=== PATIENT | female | born 1955 | race Caucasian/White ===

== ENCOUNTER 2022-10-01 16:21 | Inpatient (IN) | payer MEDICARE, SELFPAY ==
[2022-10-01 16:23] VITALS: BP 204/108; PULSE 70; RESP 17; TEMP 36.6; O2SAT 93; BMI 38.4
[2022-10-01] MEDS: Morphine 4 MG/ML Syringe IV ×2 (16:57→17:48)
[2022-10-01] MEDS: Ondansetron 4 MG/2 ML Vial IV (16:57)
[2022-10-01 17:19] LABS: Absolute Lymphocyte Count 2.45 X10^3/uL (0.83-4.51); Absolute Neutrophil Count 6.1 X10^3/uL (2.0-7.7); Basophil# 0.05 X10^3/uL; Basophil% 0.5 % (0-1); Eosinophil# 0.12 X10^3/uL; Eosinophils% 1.3 % (0-5); Hematocrit 42.6 % (37-47); Hemoglobin 14.4 g/dL (12.0-15.0); Lymphocyte # 2.45 X10^3/ul (0.83-4.51); Lymphocyte % 26.4 % (19-41); Mean Corp Hgb Conc 33.8 g/dL (32-36); Mean Corpuscular Hgb 31.7 pg (27.0-32.0); Mean Corpuscular Volume 93.8 fL (81-99); Mean Platelet Vol. 9.2 fl (6.2-12.0); Monocyte# 0.56 X10^3/uL; NRBC Flagged by Analyzer 0 % (0-5); Neutrophil # 6.06 X10^3/uL (2.7-7.7); Neutrophil % 65.4 % (47-70); Platelet Count 263 K/mm3 (150-450); RBC Distribution Width CV 12.7 % (11.6-14.6); RBC Distribution Width SD 43.7 fl (35.1-43.9); Red Blood Count 4.54 M/mm3 (4.2-5.4); White Blood Count 9.3 K/mm3 (4.4-11.0)
[2022-10-01 17:33] LABS: Anion Gap 6 (5-15); BUN 16 mg/dL (7-18); BUN/Creat Ratio 19.7 RATIO (10-20); Chloride 109 mmol/L (98-107); Creatinine, Serum 0.81 mg/dL (0.55-1.02); EST Glomerular Filtration Rate 75 mL/min (>60); Est Glom Filt Rate - Afr Amer 91 mL/min (>60); Glucose 103 mg/dL (74-106); Sodium Level 142 mmol/L (136-145)
--- NOTE | 2022-10-01 18:00 | RAD_ITS ---
STUDY: X-RAY - RIGHT FEMUR REASON FOR STUDY: Female, 67 years old. pain TECHNIQUE: 2 view(s) of the femur. COMPARISON: None. FINDINGS: Possible cortical defect subcapital femoral neck. Remainder of the femur and normal. Normal visualized soft tissue structure. RAD/Femur Min 2 Views IMPRESSION: Possible impacted nondisplaced subcapital hip fracture. Recommend dedicated hip views. Electronically Signed: Robles Wiggins MD at 18:46 EST ,
--- NOTE | 2022-10-01 18:00 | RAD_ITS ---
STUDY: X-RAY - PELVIS REASON FOR EXAM: Female, 67 years old. Pain TECHNIQUE: One view of the pelvis was obtained. COMPARISON: None. FINDINGS: There is a non-specific bowel gas pattern. Normal visualized soft tissue structures. Normal bilateral iliac wings, sacroiliac joints and visualized sacrum. Normal visualized bilateral superior and inferior pubic rami. Normal pubic symphysis. Normal ischial tuberosities. Normal visualized right femoral head. Normal right acetabulum. Normal right hip joint. Normal visualized left femoral head. Normal left acetabulum. Normal left hip joint. RAD/Pelvis 1 or 2 Views IMPRESSION: Normal x-ray examination of the pelvis. Electronically Signed: Robles Wiggins MD at 18:43 EST ,
[2022-10-01 18:22] VITALS: BP 157/61
--- NOTE | 2022-10-01 18:31 | EDS_ITS ---
HPI History of Present Illness Chief Complaint: Fall Narrative Narrative: 67-year-old female presenting with right hip pain. She states he was out feeding the chickens and slipped and fell on the grass. She was unable to get up. She complains of excruciating pain radiating from right hip down her mid femoral region. She denies head injury or LOC. She is not on any anticoagulation. States really medical problems with high blood pressure. Otherwise healthy prior to fall. PFSH PFS Medical History Hypertension Home Medications lisinopril 10 mg tablet 10 mg PO DAILY 10/01/22 [History Last Taken Unknown] omeprazole 20 mg capsule,delayed release 20 mg PO DAILY PRN GERD 10/01/22 [History Last Taken Unknown] Allergy/AdvReac Type Severity Reaction Status Date / Time No Known Allergies Allergy Verified 10/01/22 16:22 Surgical History History of cholecystectomy History of hysterectomy Social History Smoking Status: Never smoker ROS ROS ED Constitutional Constitutional ED: Denies chills, fever(s) or sweats Eyes Eyes: Denies blurry vision or change in vision ENT ENT ED: Denies ear pain or sore throat Cardiovascular Cardiovascular: Denies chest pain, palpitations or racing heartbeat Respiratory/Chest Respiratory/Chest: Denies cough, dyspnea or sputum Gastrointestinal Gastrointestinal: Denies abdominal pain, constipation, diarrhea, nausea or vomiting Genitourinary Genitourinary ED: Denies dysuria, hematuria or urinary frequency Musculoskeletal Musculoskeletal: Reports other Details: Right hip pain Integumentary Denies abscess, Abrasions or rash Neurologic Neurologic: Denies headache(s), paresthesias or weakness Psychiatric Psychiatric: Denies anxiety, depression, suicidal ideation or suicidal thoughts Endocrine Endocrinology: Denies polydipsia or polyuria EXAM Physical Exam Const Vital Signs: 10/01/22 16:23 10/01/22 16:25 10/01/22 18:22 Temperature 97.8 F Temperature Source Oral Pulse Rate 70 Respiratory Rate 17 Respiratory Effort Normal Non-Labored Respiratory Depth Normal Respiratory Pattern Normal Blood Pressure 204/108 H 157/61 H Blood Pressure Mean 140 93 Pulse Ox 93 Oxygen Delivery Method Room Air Room Air Oxygen Flow Rate (L/min) 10/01/22 19:09 Temperature 96 F L Temperature Source Temporal Pulse Rate 71 Respiratory Rate 18 Respiratory Effort Respiratory Depth Respiratory Pattern Blood Pressure 163/80 H Blood Pressure Mean 107 Pulse Ox 98 Oxygen Delivery Method Nasal Cannula Oxygen Flow Rate (L/min) 2 Positive well nourished General Appearance ED: NAD HEENT normocephalic and atraumatic Chest Wall inspection of chest normal Resp normal respiratory effort and no retractions Auscultation: Negative for rales, rhonchi or wheezes Cardio regular rate and regular rhythm GI non-tender Back/Spine Lumbar Spine / Lower Back: Negative for lumbar spinal tenderness Extremity Extremity Narrative: Tenderness palpation over the right hip and the right anterior thigh. No obvious deformity. Right hip is not shortened or externally rotated. Positive logroll on the right. Neuro oriented x3 and CN's II-XII intact bilaterally Sensorium / Orientation: alert Psych mental status grossly normal Skin no wounds MDM MDM MDM Narrative Medical decision making narrative: Patient with pain in the right hip concerning for hip fracture. I did obtain blood work and her CBC and BMP are unremarkable. Patient given morphine 4 mg as well as Zofran 4 mg IV. Attempted to obtain imaging however the patient refused x-ray because she states within 2 months of pain. She was given another 4 mg of morphine. CBC and BMP were obtained. These are normal. Right hip x-ray on my interpretation shows a nondisplaced subcapital hip fracture. The radiologist interpreted this as negative. I spoke with Dr. Mazariegos who reviewed the films and agrees agrees there is a fracture here. He will need a CT scan for surgical planning. Request an EKG as well. Patient will be discussed with the hospitalist for admission. Impression: 1. Mechanical fall 2. Right hip fracture Lab Data Attestation: I reviewed the patient's lab results. Labs: Laboratory Results - last 24 hr 10/01/22 10/01/22 17:05 17:05 WBC 9.3 RBC 4.54 Hgb 14.4 Hct 42.6 MCV 93.8 MCH 31.7 MCHC 33.8 RDW Std Deviation 43.7 RDW Coeff of Antolin 12.7 Plt Count 263 MPV 9.2 Immature Gran % (Auto) 0.400 Neut % (Auto) 65.4 Lymph % (Auto) 26.4 [place] % (Auto) 6.0 Eos % (Auto) 1.3 Baso % (Auto) 0.5 Absolute Neuts (auto) 6.1 Absolute Lymphs (auto) 2.45 Nucleated RBC % 0 Sodium 142 Potassium 4.0 Chloride 109 H Carbon Dioxide 27.0 Anion Gap 6 BUN 16 Creatinine 0.81 Estim Creat Clear Calc 59.00 Est GFR (MDRD) Af Amer 91 Est GFR (MDRD) Non-Af 75 BUN/Creatinine Ratio 19.7 Glucose 103 Calcium 9.0 Radiography Diagnostic Testing: Clinical Impression(s) from Imaging Studies Femur X-Ray 10/01/22 18:00 IMPRESSION: Possible impacted nondisplaced subcapital hip fracture. Recommend dedicated hip views. Electronically Signed: Robles Wiggins MD at 18:46 EST Reading Location ID and State: [address] [place] [address] , Service support , Pelvis X-Ray 10/01/22 18:00 IMPRESSION: Normal x-ray examination of the pelvis. Electronically Signed: Robles Wiggins MD at 18:43 EST , Discharge Plan Triage Chief Complaint: Fall ED Provider: Bernabe Schmid Dx/Rx/DC Orders Prescriptions: No Action lisinopril 10 mg Tablet 10 mg PO DAILY omeprazole 20 mg Capsule,Delayed Release(Dr/Ec) 20 mg PO DAILY PRN (Reason: GERD) Primary Care Provider: Tam Herrmann Referrals: Tam Herrmann MD [Primary Care Provider] -
[2022-10-01 19:09] VITALS: BP 163/80; PULSE 71; RESP 18; TEMP 35.5; O2SAT 98
--- NOTE | 2022-10-01 20:00 | RAD_ITS ---
STUDY: X-RAY CHEST REASON FOR EXAM: Female, 67 years old. preop TECHNIQUE: Single frontal view of the chest. COMPARISON: None. FINDINGS: The lungs are clear and expanded. There is no demonstrated pleural abnormality. Normal size heart. Normal mediastinum and annmarie. Normal visualized pulmonary arteries. Normal visualized aortic arch and descending thoracic aorta. Normal visualized thoracic spine. Normal visualized ribs, clavicles, and shoulders. There is no demonstrated abnormality of the visualized soft tissue structures of the upper abdomen. RAD/Chest 1 View (Portable) IMPRESSION: Normal x-ray examination of the chest. Electronically Signed: Robles Wiggins MD at 21:00 EST ,
--- NOTE | 2022-10-01 20:09 | HP.PCM.HOS_ITS ---
HPI - General General Date of Admission: 10/01/22 Date of Service: 10/01/22 Chief Complaint: Fall, R hip pain. HPI Narrative The patient is a 67 y/o F w/ PMHx: Obesity, HTN, GERD who presents to the [facility] ED on 10/01/22 with history of right hip pain noted to have been outside feeding her chickens and unfortunately she slipped and fell in the grass with significant debility following and unable to get up at that time with excruciating 10 out of 10 pain radiating from her right hip down to the mid femoral region with no loss of consciousness or head injury however given ongoing significant pain prompted ED evaluation. Patient currently notes pain is better controlled, 2 out of 10 however with any movement attempts she does have sharp pain rating it 10 out of 10. Work-up in the ED included T97.8, heart rate 70, BP initially 204/108 with most recent repeat 163/80, respiratory rate initially 93% eventually placed on 2 L nasal cannula with oxygenation 98% following administration of morphine, CBC with WC 9.3, hemoglobin 14.4, platelet 263 without marked shift, BMP unremarkable aside chloride 109, plain film of the right femur with possible impacted nondisplaced subcapital hip fracture, plain film of the pelvis with no acute findings, EKG with sinus rhythm with no acute evidence of ischemia. ED discussed case with Dr. Mazariegos. In the ED patient administered Dilaudid 0.5 mg IV x1 as well as morphine 4 mg IV x2 in addition to Zofran 4 mg. [facility] Medical History (Updated 10/02/22 @ 02:[address] Margaret Mccrary MD) GERD (gastroesophageal reflux disease) Hypertension Obesity Home Medications cholecalciferol (vitamin D3) 25 mcg (1,000 unit) tablet (Vitamin D3) 25 mcg PO DAILY supplement 10/01/22 [History Last Taken 10/01/22] cyanocobalamin (vitamin B-12) 1,000 mcg sublingual tablet 1,000 mcg sublingual DAILY supplement 10/01/22 [History Last Taken 10/01/22] lisinopril 10 mg tablet 10 mg PO DAILY blood pressure 10/01/22 [History Last Taken 10/01/22] omeprazole 20 mg capsule,delayed release 20 mg PO DAILY PRN GERD 10/01/22 [History Last Taken Unknown] Allergy/AdvReac Type Severity Reaction Status Date / Time No Known Allergies Allergy Verified 10/01/22 16:22 Family History (Updated 10/01/22 @ 20:[address] Margaret Mccrary MD) Mother Diabetes Father Thyroid disorder Surgical History History of cholecystectomy History of cranial surgery History of hysterectomy History of orthopedic surgery History of tonsillectomy and adenoidectomy Social History (Updated 10/01/22 @ 20:[address] Margaret Mccrary MD) household members: spouse Smoking Status: Never smoker alcohol intake: never substance use type: does not use ROS ROS Narrative Admission Review of Systems: CONSTITUTIONAL: No weight loss, fever, chills, + weakness or fatigue. HEENT: Eyes: No visual loss, blurred vision, double vision or yellow sclerae. Ears, Nose, Throat: No hearing loss, sneezing, congestion, runny nose or sore throat. SKIN: No rash or itching, lesions, wounds. CARDIOVASCULAR: No chest pain, chest pressure or chest discomfort, palpitations, edema, orthopnea, syncopal events. RESPIRATORY: No shortness of breath, cough or sputum, wheezing, hemoptysis. GASTROINTESTINAL: + anorexia, nausea, No vomiting or diarrhea, abdominal pain, melena, BRBPR. GENITOURINARY: No dysuria, frequency, urgency or retention. NEUROLOGICAL: No headache, dizziness, syncope, paralysis, ataxia, numbness or tingling in the extremities, focal weakness, change in bowel or bladder control, seizure. MUSCULOSKELETAL: + muscle, back pain, joint pain or stiffness. HEMATOLOGIC: No anemia, bleeding or bruising. LYMPHATICS: No enlarged nodes. No history of splenectomy. PSYCHIATRIC: No history of depression or anxiety. ENDOCRINOLOGIC: No reports of sweating, cold or heat intolerance. No polyuria or polydipsia. ALLERGIES: No history of asthma, hives, eczema or rhinitis. Vital Signs Vital Signs Vital Signs: 10/01/22 16:23 10/01/22 16:25 10/01/22 18:22 Temperature 97.8 F Temperature Source Oral Pulse Rate 70 Respiratory Rate 17 Respiratory Effort Normal Non-Labored Respiratory Depth Normal Respiratory Pattern Normal Blood Pressure 204/108 H 157/61 H Blood Pressure Mean 140 93 Pulse Ox 93 Oxygen Delivery Method Room Air Room Air Oxygen Flow Rate (L/min) 10/01/22 19:09 Temperature 96 F L Temperature Source Temporal Pulse Rate 71 Respiratory Rate 18 Respiratory Effort Respiratory Depth Respiratory Pattern Blood Pressure 163/80 H Blood Pressure Mean 107 Pulse Ox 98 Oxygen Delivery Method Nasal Cannula Oxygen Flow Rate (L/min) 2 Weight Weight: 223 lb 11.2 oz Body Mass Index (BMI) 38.4 Physical Exam Narrative Physical Examination: General: Awake, alert, oriented x 3 and cooperative, laying in the ED bed, fatigued appearing, notes pain currently controlled. Skin: Normal color, normal turgor, no icterus, no cyanosis. HEENT: AT/NC, EOMI, PERRLA, dry MM, no carotid bruits or JVD noted. Lungs: Diminished, distant, appropriate effort, no rales, ronchi or wheezing. Heart: Regular rate and rhythm; no gallop, rub audible. Abdomen: Soft, obese, NTTP, ND, mildly hyperactive BS, no HSM. Extremities: No cyanosis, no clubbing, mild bilateral ankle not markedly pitting edema, peripheral pulses intact, status post fall with right hip fracture. Neurological: Patient awake, alert, oriented as noted, cognitive function int act; pupils equally reactive to light and accommodation, cranial nerves II-XII grossly normal, moving all 4 extremities except limited right lower extremity movement given recent fall with right hip fracture, strength accordingly severely globally decreased. Psychiatric: Affect appears fatigued, notes pain currently controlled, no acute evidence of depressive or anxiety feelings. Results Lab / Micro Data Result Diagrams: 10/01/22 17:05 10/01/22 17:05 Labs: Laboratory Results - last 24 hr 10/01/22 17:05: WBC 9.3, RBC 4.54, Hgb 14.4, Hct 42.6, MCV 93.8, MCH 31.7, MCHC 33.8, RDW Std Deviation 43.7, RDW Coeff of Antolin 12.7, Plt Count 263, MPV 9.2, Immature Gran % (Auto) 0.400, Neut % (Auto) 65.4, Lymph % (Auto) 26.4, [place] % (Auto) 6.0, Eos % (Auto) 1.3, Baso % (Auto) 0.5, Absolute Neuts (auto) 6.1, Absolute Lymphs (auto) 2.45, Nucleated RBC % 0 10/01/22 17:05: Sodium 142, Potassium 4.0, Chloride 109 H, Carbon Dioxide 27.0, Anion Gap 6, BUN 16, Creatinine 0.81, Estim Creat Clear Calc 59.00, Est GFR (MDRD) Af Amer 91, Est GFR (MDRD) Non-Af 75, BUN/Creatinine Ratio 19.7, Glucose 103, Calcium 9.0 Radiology Impression Femur X-Ray 10/01/22 18:00 IMPRESSION: Possible impacted nondisplaced subcapital hip fracture. Recommend dedicated hip views. Electronically Signed: Robles Wiggins MD at 18:46 EST , Pelvis X-Ray 10/01/22 18:00 IMPRESSION: Normal x-ray examination of the pelvis. Electronically Signed: Robles Wiggins MD at 18:43 EST Reading Location ID and State: [facility] / [place] , Service support , Assessment & Plan Assessment/Plan (1) Closed right hip fracture: PLAN: Plan The patient is a 67 y/o F w/ PMHx: Obesity, HTN, GERD who presents to the [facility] ED on 10/01/22 with history of right hip pain noted to have been outside feeding her chickens and unfortunately she slipped and fell in the grass with significant debility following and unable to get up at that time with excruciating 10 out of 10 pain radiating from her right hip down to the mid femo ral region with no loss of consciousness or head injury however given ongoing significant pain prompted ED evaluation. #1. General debility, right hip pain s/p mechanical fall w/ impacted nondispl aced subcapital hip fracture: Plain film noting possible impacted nondisplaced subcapital hip fracture with an unremarkable plain film of the pelvis. Orthopedic surgery consulted from ED. Will admit to MS, maintain NPO after midnight, continue gentle IVFs, moore placement, monitor I/Os, frequent po sitioning, fall precautions, PRN Pain, anti-emetic regimen. PT/OT following operative intervention. CM consulted for discharge planning. Per NSQIP given patient's not marked medical history, high functioning, appropriate labs, no history of exertional dyspnea or chest pain and EKG not marked appearing agree with proceeding to operative intervention in AM. #2. Hypertension, currently uncontrolled but suspect pain related: Patient BP initially significantly elevated, likely pain related, for now will continue home regimen including lisinopril with further adjustments if necessary pending repeat trend, PRN hydralazine. #3. Obesity: Weight loss and lifestyle changes encouraged. #4. GERD: We will continue patient on PPI. #5. DVT prophylaxis: SCDs, defer chemoprophylaxis given likely planned a.m. orthopedic surgery intervention. #6. CODE status: Patient and who are present note that they have not yet set up healthcare power gis scientist or living will. Discussed this concept and at this point patient would like her to be her decision-maker if she for some reason could not. Discussed CODE status at length including difference between FULL code, DNR-CCA and DNR-CC status. Following discussions about the differences in these status, requested Full Code status. Advanced Care Planning Face to Face Time: 16 minutes. Charges/Coding Visit Charges Inpatient E&M: 60445 Init Hosp L3 Procedures Hospitalists Procedures: 30075 Advncd Care Plan 30 Min
--- NOTE | 2022-10-01 20:17 | CT_ITS ---
STUDY: CT PELVIS and femurs/hips WITHOUT CONTRAST REASON FOR EXAM: Female, 67 years old. surgical planning RADIATION DOSAGE (If Supplied By Facility): CTDIvol = ( 14.05 ) mGy, DLP = ( 934.58 ) mGycm TECHNIQUE: Transaxial imaging of the pelvis was performed with oral contrast, and without intravenous administration of contrast material. Individualized dose optimization techniques were used for this CT. COMPARISON: September 23, 2022. Pelvic radiograph FINDINGS: Bladder is decompressed with a Velázquez catheter. Normal visualized small intestine. Normal visualized colon. There is no pelvic fluid. There is no pelvic mass lesion or lymphadenopathy. Normal visualized pelvic arteries. Normal abdominal wall. Impacted subcapital femoral neck fracture. Pelvic ring otherwise intact. Left hip normal. Sacroiliac joints normal. Bilateral femurs and knees also within normal limits. CT/Extremity Lower without Contra IMPRESSION: Right hip fracture as above. Electronically Signed: Robles Wiggins MD at 21:20 EST ,
[2022-10-01 20:18] VITALS: BP 166/93; PULSE 70; RESP 18; TEMP 36.6; O2SAT 98
[2022-10-01] MEDS: HYDROmorphone 0.5 MG/0.5 ML SYRINGE IV (20:26)
[2022-10-01 21:39] VITALS: BMI 34.0
[2022-10-01 21:50] VITALS: BP 159/75; PULSE 81; RESP 18; TEMP 36.8; O2SAT 100
[2022-10-01 21:59] LABS: ALB/GLOB Ratio 1.2 RATIO (0.9-2.4); AST(SGOT) 18 U/L (15-37); Alanine Aminotransfer ALT/SGPT 21 U/L (13-56); Albumin, Serum 3.9 g/dL (3.2-5.0); Alkaline Phosphatase 66 U/L (45-117); Globulin 3.3 g/dL (2.2-4.2); Protein, Total 7.2 g/dL (6.4-8.2)
[2022-10-01 22:38] VITALS: BMI 34.0
[2022-10-01] MEDS: MELATONIN 3 MG TABLET PO (22:46)
[2022-10-01] MEDS: 0.9% Normal Saline 1,000 ML 100 ML IV (22:46)
[2022-10-01] MEDS: 0.9% Saline Lock 10 ML Syringe IV (22:46)
[2022-10-01] MEDS: Pantoprazole Sodium 20 MG Tablet PO (22:47)
[2022-10-01] MEDS: oxyCODONE 5 MG Tablet PO (22:47)
[2022-10-01 23:30] VITALS: O2SAT 98
[2022-10-02] VITALS (13 sets, daily range): BP systolic 114–183; BP diastolic 61–100; PULSE 60–92; RESP 12–18; TEMP 36.6–37.2; O2SAT 94–100; BMI 34.0
--- NOTE | 2022-10-02 06:04 | CONS.ORTHO ---
HPI Consult Data Date of Consult: 10/02/22 HPI Narrative Reason for Consultation: Right femoral neck fracture HPI Narrative: SOPHIE LAGUNAS, is a 67 F who presents to [facility] emergency department after a mechanical fall on an embankment when she was going out to feed her chickens on 10/01/2022. Patient landed on her right side. She denies any other associated injury besides right hip pain. Denies any head injury, loss of consciousness. Denies any presyncopal symptoms. Denies syncope. Denies antecedent right hip or groin pain. Community ambulator without assistive device. She was advised by the emergency room physician where x-rays revealed a valgus impacted right femoral neck fracture. She was admitted under the service of the hospitalist. I was called from the emergency department and recommend surgical intervention. I saw the patient in consultation this morning. Patient denies any other symptoms. She denies any fevers, chills, nausea vomiting, chest pain, shortness of breath, numbness or tingling. FOR[facility]LY [facility] Medical History (Updated 10/02/22 @ 02:[address] Margaret Mccrary MD) GERD (gastroesophageal reflux disease) Hypertension Obesity Home Medications cholecalciferol (vitamin D3) 25 mcg (1,000 unit) tablet (Vitamin D3) 25 mcg PO DAILY supplement 10/01/22 [History Last Taken 10/01/22] cyanocobalamin (vitamin B-12) 1,000 mcg sublingual tablet 1,000 mcg sublingual DAILY supplement 10/01/22 [History Last Taken 10/01/22] lisinopril 10 mg tablet 10 mg PO DAILY blood pressure 10/01/22 [History Last Taken 10/01/22] omeprazole 20 mg capsule,delayed release 20 mg PO DAILY PRN GERD 10/01/22 [History Last Taken Unknown] Allergy/AdvReac Type Severity Reaction Status Date / Time No Known Allergies Allergy Verified 10/01/22 16:22 Family History (Updated 10/01/22 @ 20:[address] Margaret Mccrary MD) Mother Diabetes Father Thyroid disorder Surgical History History of cholecystectomy History of cranial surgery History of hysterectomy History of orthopedic surgery History of tonsillectomy and adenoidectomy Social History (Updated 10/01/22 @ 20:[address] Margaret Mccrary MD) household members: spouse Smoking Status: Never smoker alcohol intake: never substance use type: does not use ROS ROS Narrative 12 point review of systems obtained, negative unless otherwise noted in HPI. Vital Signs Vital Signs Vital Signs: 10/01/22 16:23 10/01/22 16:25 10/01/22 18:22 Temperature 97.8 F Temperature Source Oral Pulse Rate 70 Respiratory Rate 17 Respiratory Effort Normal Non-Labored Respiratory Depth Normal Respiratory Pattern Normal Blood Pressure 204/108 H 157/61 H Blood Pressure Mean 140 93 Blood Pressure Source Blood Pressure Position Blood Pressure Location Pulse Ox 93 Oxygen Delivery Method Room Air Room Air Oxygen Flow Rate (L/min) 10/01/22 19:09 10/01/22 20:18 10/01/22 21:50 Temperature 96 F L 97.8 F 98.2 F Temperature Source Temporal Oral Oral Pulse Rate 71 70 81 Respiratory Rate 18 18 18 Respiratory Effort Respiratory Depth Respiratory Pattern Blood Pressure 163/80 H 166/93 H 159/75 H Blood Pressure Mean 107 117 103 Blood Pressure Source Monitor Blood Pressure Position Semi-Fowlers Blood Pressure Location Right Arm Pulse Ox 98 98 100 Oxygen Delivery Method Nasal Cannula Nasal Cannula Room Air Oxygen Flow Rate (L/min) 2 2 10/01/22 22:36 10/01/22 23:30 10/02/22 04:00 Temperature 97.8 F Temperature Source Temporal Pulse Rate 73 Respiratory Rate 16 Respiratory Effort Normal Non-Labored Respiratory Depth Normal Respiratory Pattern Normal Blood Pressure 115/61 Blood Pressure Mean 79 Blood Pressure Source Monitor Blood Pressure Position Semi-Fowlers Blood Pressure Location Right Arm Pulse Ox 98 94 Oxygen Delivery Method Room Air Room Air Room Air Oxygen Flow Rate (L/min) Weight Weight: 198 lb Body Mass Index (BMI) 34.0 Physical Exam Narrative General -A&Ox3, NAD, appears stated age. Vital signs stable, afebrile. Respiratory -normal work of breathing, no intercostal retractions. CV -pulses regular, brisk capillary refill ?4 limbs. Abdomen-soft, nontender, nondistended. No guarding, rigidity, rebound tenderness. Musculoskeletal/neurologic -full range of motion nontender throughout bilateral upper extremities, left lower extremity with full sensation and strength in all dermatomes and myotomes. No midline cervical tenderness. Right lower extremity-no obvious deformity. Pain with logroll of the right lower extremity. Nontender throughout the right knee femoral shaft, tibial shaft and right foot/ankle. Brisk capillary refill. Sensation intact light touch L3-S1 dermatomes. DF, PF, EHL intact. DP, PT 2+. Pelvis is stable, nontender. Skin is intact without lacerations, abrasions. No ecchymosis noted. Lab / Micro Data Result Diagrams: 10/01/22 17:05 10/01/22 17:05 Labs: Laboratory Results - last 24 hr 10/01/22 17:05: WBC 9.3, RBC 4.54, Hgb 14.4, Hct 42.6, MCV 93.8, MCH 31.7, MCHC 33.8, RDW Std Deviation 43.7, RDW Coeff of Antolin 12.7, Plt Count 263, MPV 9.2, Immature Gran % (Auto) 0.400, Neut % (Auto) 65.4, Lymph % (Auto) 26.4, [place] % (Auto) 6.0, Eos % (Auto) 1.3, Baso % (Auto) 0.5, Absolute Neuts (auto) 6.1, Absolute Lymphs (auto) 2.45, Nucleated RBC % 0 10/01/22 17:05: Sodium 142, Potassium 4.0, Chloride 109 H, Carbon Dioxide 27.0, Anion Gap 6, BUN 16, Creatinine 0.81, Estim Creat Clear Calc 59.00, Est GFR (MDRD) Af Amer 91, Est GFR (MDRD) Non-Af 75, BUN/Creatinine Ratio 19.7, Glucose 103, Calcium 9.0, Total Bilirubin 0.40, AST 18, ALT 21, Alkaline Phosphatase 66, Total Protein 7.2, Albumin 3.9, Globulin 3.3, Albumin/Globulin Ratio 1.2 Radiology Impression Femur X-Ray 10/01/22 18:00 IMPRESSION: Possible impacted nondisplaced subcapital hip fracture. Recommend dedicated hip views. Electronically Signed: Robles Wiggins MD at 18:46 EST , Pelvis X-Ray 10/01/22 18:00 IMPRESSION: Normal x-ray examination of the pelvis. Electronically Signed: Robles Wiggins MD at 18:43 EST , Chest X-Ray 10/01/22 20:00 IMPRESSION: Normal x-ray examination of the chest. Electronically Signed: Robles Wiggins MD at 21:00 EST , Lower Extremity CT 10/01/22 20:17 IMPRESSION: Right hip fracture as above. Electronically Signed: Robles Wiggins MD at 21:20 EST , Assessment & Plan Assessment/Plan (1) Closed right hip fracture: PLAN: Patient sustained a valgus impacted right femoral neck fracture -Closed, neurovascularly intact -Isolated injury -Recommending surgical intervention in the form of right femoral neck percutaneous screw fixation -I discussed the procedure-its risks, benefits and alternative. Risks include but are not limited to bleeding, infection, loss of life or limb, risk of anesthesia, persistent pain or disability, need for additional surgery, nonunion, malunion, failure of orthopedic hardware, neurovascular injury, DVT or PE. Patient expressed understanding these risks and wished proceed with surgery. -Maintenance IV fluids, clear liquid diet after midnight n.p.o. at 2 hours prior to surgery -Type and screen -2 g Ancef on-call to the OR -Bedrest, heel protectors -Plan to proceed with surgery later today when OR becomes available Thank you for this consultation.
[2022-10-02 06:12] LABS: Absolute Lymphocyte Count 1.33 X10^3/uL (0.83-4.51); Absolute Neutrophil Count 9.3 X10^3/uL (2.0-7.7); Basophil# 0.04 X10^3/uL; Basophil% 0.3 % (0-1); Eosinophil# 0.15 X10^3/uL; Eosinophils% 1.3 % (0-5); Hemoglobin 13.6 g/dL (12.0-15.0); Lymphocyte # 1.33 X10^3/ul (0.83-4.51); Lymphocyte % 11.5 % (19-41); Mean Corpuscular Hgb 32.4 pg (27.0-32.0); Mean Corpuscular Volume 95.2 fL (81-99); Mean Platelet Vol. 8.9 fl (6.2-12.0); Monocyte# 0.71 X10^3/uL; Monocyte% 6.2 % (0-10); NRBC Flagged by Analyzer 0 % (0-5); Neutrophil # 9.27 X10^3/uL (2.7-7.7); Neutrophil % 80.4 % (47-70); Platelet Count 229 K/mm3 (150-450); RBC Distribution Width CV 12.6 % (11.6-14.6); RBC Distribution Width SD 43.8 fl (35.1-43.9); White Blood Count 11.5 K/mm3 (4.4-11.0)
[2022-10-02 06:39] LABS: ALB/GLOB Ratio 0.9 RATIO (0.9-2.4); AST(SGOT) 11 U/L (15-37); Alanine Aminotransfer ALT/SGPT 18 U/L (13-56); Albumin, Serum 3.1 g/dL (3.2-5.0); Alkaline Phosphatase 61 U/L (45-117); Anion Gap 3 (5-15); BUN 15 mg/dL (7-18); Calcium,Total 8.1 mg/dL (8.5-10.1); Chloride 104 mmol/L (98-107); Creatinine, Serum 0.71 mg/dL (0.55-1.02); EST Glomerular Filtration Rate 87 mL/min (>60); Est Glom Filt Rate - Afr Amer 105 mL/min (>60); Estimated Creatinine Clearance 47.79 ml/min; Globulin 3.3 g/dL (2.2-4.2); Glucose 132 mg/dL (74-106); Potassium 3.9 mmol/L (3.5-5.1); Protein, Total 6.4 g/dL (6.4-8.2); Sodium Level 136 mmol/L (136-145)
[2022-10-02] MEDS: oxyCODONE 5 MG Tablet PO (07:35)
[2022-10-02] MEDS: 0.9% Normal Saline 1,000 ML 100 ML IV ×2 (07:36→21:20)
[2022-10-02] MEDS: Morphine 4 MG/ML Syringe IV ×2 (11:09→21:17)
[2022-10-02] MEDS: 0.9% Saline Lock 10 ML Syringe IV (11:09)
--- NOTE | 2022-10-02 11:30 | CASEMGMT ---
Late entry- RN CM in to complete assessment, pt has been taken to OR.
[2022-10-02] MEDS: Lactated Ringers 1,000 ML 15 ML IV (14:10)
[2022-10-02] MEDS: Cefazolin 2 GM in 0.9% Normal Saline 100 ML IV ×2 (14:27→21:23)
--- NOTE | 2022-10-02 14:55 | RAD_ITS ---
STUDY: X-RAY - PELVIS AND RIGHT HIP REASON FOR EXAM: Female, 67 years old. Fracture. TECHNIQUE: 2 intraoperative views of the pelvis and hip. Fluoroscopic time not provided. COMPARISON: CT of the pelvis and right hip, October 01, 2022. FINDINGS: The provided images demonstrate 3 gadolinium-enhanced transfixing the right femoral head and neck. The head and neck are normal anatomic alignment. The hip is preserved. The surrounding soft tissues are grossly normal. Please refer to the operative report for further details. RAD/Hip Min 2 Views (Portable) IMPRESSION: Fluoroscopic guidance provided during an internal fixation of the right femoral neck fracture. Electronically Signed: Claude Melgar DO at 16:12 EST ,
[2022-10-02] MEDS: Ropivacaine 0.5% 30 ML Vial (15:57)
--- NOTE | 2022-10-02 17:02 | PN.HOSP_ITS ---
Subjective Subjective ,Patient was seen and examined this morning, she sustained a closed right hip fracture cording to medical record, orthopedic surgery will take her today for open reduction internal fixation via screws and a plate. Patient states that she lives on a single floor of her home, she is active and independently takes care of her self. Chronic medical problems include hypertension and GERD. Objective Data Objective Data Vital Signs: Vital Signs Temp Pulse Resp BP Pulse Ox O2 Del Method O2 Flow Rate 98.2 F 92 14 168/92 H 100 Nasal Cannula 4 10/02/22 16:18 10/02/22 16:30 10/02/22 16:30 10/02/22 16:30 10/02/22 16:30 10/02/22 16:18 10/02/22 16:30 Oxygen Flow Rate (L/min) 4 Oxygen Delivery Method Nasal Cannula Weight: 89.811 kg Body Mass Index (BMI) 34.0 Intake & Output: Intake and Output for Last 24 Hours 09/30/22 10/01/22 10/02/22 23:59 23:59 23:59 Intake Total 1700.00 / 1700.00 Output Total 1100 / 1100 Balance 600.00 / 600.00 Lab / Micro Data Result Diagrams: 10/02/22 06:00 10/02/22 06:00 Labs: Laboratory Results - last 24 hr 10/01/22 17:05: WBC 9.3, RBC 4.54, Hgb 14.4, Hct 42.6, MCV 93.8, MCH 31.7, MCHC 33.8, RDW Std Deviation 43.7, RDW Coeff of Antolin 12.7, Plt Count 263, MPV 9.2, Immature Gran % (Auto) 0.400, Neut % (Auto) 65.4, Lymph % (Auto) 26.4, [place] % (Auto) 6.0, Eos % (Auto) 1.3, Baso % (Auto) 0.5, Absolute Neuts (auto) 6.1, Absolute Lymphs (auto) 2.45, Nucleated RBC % 0 10/01/22 17:05: Sodium 142, Potassium 4.0, Chloride 109 H, Carbon Dioxide 27.0, Anion Gap 6, BUN 16, Creatinine 0.81, Estim Creat Clear Calc 59.00, Est GFR (MDRD) Af Amer 91, Est GFR (MDRD) Non-Af 75, BUN/Creatinine Ratio 19.7, Glucose 103, Calcium 9.0, Total Bilirubin 0.40, AST 18, ALT 21, Alkaline Phosphatase 66, Total Protein 7.2, Albumin 3.9, Globulin 3.3, Albumin/Globulin Ratio 1.2 10/02/22 06:00: WBC 11.5 H, RBC 4.20, Hgb 13.6, Hct 40.0, MCV 95.2, MCH 32.4 H, MCHC 34.0, RDW Std Deviation 43.8, RDW Coeff of Antolin 12.6, Plt Count 229, MPV 8.9, Immature Gran % (Auto) 0.300, Neut % (Auto) 80.4 H, Lymph % (Auto) 11.5 L, [place] % (Auto) 6.2, Eos % (Auto) 1.3, Baso % (Auto) 0.3, Absolute Neuts (auto) 9.3 H, Absolute Lymphs (auto) 1.33, Nucleated RBC % 0 10/02/22 06:00: Sodium 136, Potassium 3.9, Chloride 104, Carbon Dioxide 29.0, Anion Gap 3 L, BUN 15, Creatinine 0.71, Estim Creat Clear Calc 47.79, Est GFR (MDRD) Af Amer 105, Est GFR (MDRD) Non-Af 87, BUN/Creatinine Ratio 21.0 H, Glucose 132 H, Calcium 8.1 L, Total Bilirubin 0.70, AST 11 L, ALT 18, Alkaline Phosphatase 61, Total Protein 6.4, Albumin 3.1 L, Globulin 3.3, Albumin/Globulin Ratio 0.9 10/02/22 06:00: Blood Type O NEGATIVE, Antibody Screen NEGATIVE Radiography Diagnostic Testing: Radiology Impression Femur X-Ray 10/01/22 18:00 IMPRESSION: Possible impacted nondisplaced subcapital hip fracture. Recommend dedicated hip views. Electronically Signed: Robles Wiggins MD at 18:46 EST Reading Location ID and State: [facility] / [place] , Service support , Pelvis X-Ray 10/01/22 18:00 IMPRESSION: Normal x-ray examination of the pelvis. Electronically Signed: Robles Wiggins MD at 18:43 EST , Chest X-Ray 10/01/22 20:00 IMPRESSION: Normal x-ray examination of the chest. Electronically Signed: Robles Wiggins MD at 21:00 EST , Lower Extremity CT 10/01/22 20:17 IMPRESSION: Right hip fracture as above. Electronically Signed: Robles Wiggins MD at 21:20 EST , Hip X-Ray 10/02/22 14:55 IMPRESSION: Fluoroscopic guidance provided during an internal fixation of the right femoral neck fracture. Electronically Signed: Claude Melgar DO at 16:12 EST , Physical Exam Const alert, oriented x3, no apparent distress, average body habitus and healthy appearing General Appearance: cooperative, well kempt and well developed Orientation / Consciousness: awake, oriented to person, oriented to place and oriented to time HEENT normocephalic, head/scalp atraumatic and moist oral mucous membranes Eyes PERRL, EOMs intact bilaterally and conjunctivae normal Neck supple, no JVD, thyroid normal and no carotid bruits General: trachea midline Resp normal respiratory effort, no retractions, no use of accessory muscles and clear to auscultation bilaterally Auscultation: Negative for rales, rhonchi or wheezes Cardio regular rate, regular rhythm, S1 normal heart sound, S2 normal heart sound, no murmurs, no rub and no gallops GI normal to inspection, nondistended, normoactive bowel sounds, soft to palpation, non-tender and non-distended Skin no rashes or lesions noted General Skin Exam: no breakdown Neuro oriented x3, CN's II-XII intact bilaterally, no focal motor deficits and no sensory deficits noted Sensorium / Orientation: awake and alert Speech: speech normal Psych affect normal Assessment & Plan Assessment/Plan (1) Closed right hip fracture: PLAN: Plan 1. Right femoral neck fracture secondary to osteoporosis-patient appears medically stable at this time for surgery today, I feel this most likely she will go home rather than go to a short-term rehab facility or residential at the time of discharge from the hospital. PT and OT will be seeing patient, orthopedic surgery is participating in her care #2 essential hypertension-patient will remain on her present medications #3 GERD-patient is on a PPI currently Charges/Coding Visit Charges Inpatient E&M: 07865 Subs Hosp L2
[2022-10-02] MEDS: hydrALAZINE 20 MG/ML Vial 10 MG IV (18:03)
[2022-10-02] MEDS: Lisinopril 10 MG Tablet PO ×2 (18:03)
[2022-10-02] MEDS: Calcium Carbonate 500 MG Tablet PO (18:05)
--- NOTE | 2022-10-02 23:14 | PCM.OPRPT ---
Report of Operation Date of Procedure: 10/02/22 Description of Surgical Findings:: Preoperative diagnosis: Right nondisplaced femoral neck fracture Postoperative diagnosis: Right nondisplaced femoral neck fracture Procedure: Percutaneous screw fixation of right nondisplaced femoral neck fracture Surgeon: Joe Mazariegos DO Anesthesia: General LMA Anesthesiologist: Dr. Arenas Complications: None Drains: None Estimated blood loss: 100 cc Urinary output: None IV fluids: Per anesthesia record Specimens: None Surgical implants: Synthes 7.3 mm cannulated screws x3 Surgical indications: SOPHIE LAGUNAS, is a 67 F who presents to [facility] emergency department after a mechanical fall on an embankment when she was going out to feed her chickens on 10/01/2022. Patient landed on her right side. She denies any other associated injury besides right hip pain. Denies any head injury, loss of consciousness. Denies any presyncopal symptoms. Denies syncope. Denies antecedent right hip or groin pain. Community ambulator without assistive device. She was advised by the emergency room physician where x-rays revealed a valgus impacted right femoral neck fracture. She was admitted under the service of the hospitalist. I was called from the emergency department and recommend surgical intervention. I saw the patient in consultation this morning. I recommended surgical intervention in the form of percutaneous screw fixation of the right femoral neck. We discussed the risks, benefits, alternatives of procedure including but not limited to bleeding, infection, need for additional surgery, malunion or nonunion, persistent pain, persistent disability, loss of life or limb, risk of anesthesia, mechanical failure of orthopedic hardware. Patient acknowledged understanding of these risks and elected to proceed. Description of procedure: Prior to the procedure, patient was brought to the preoperative holding area where patient was identified by name, medical record number and date of . I confirmed the side, site, operation to be performed. Informed consent was confirmed. The operative extremity was marked. She was also seen by anesthesia staff and anesthesia consent obtained.At time of the operative procedure, pt was brought to the operative suite. General anesthesia was induced on the hospital bed and LMA placed. After adequate anesthesia and securing the tube, patient was then positioned supine on a fracture table. The operative foot was well-padded and placed in a ski boot attached to the traction unit on the fracture table. The nonoperative leg was extended and secured to the lateral post of the fracture table. A well-padded perineal post was placed and the right upper extremity was brought across patient's torso and secured. We applied gentle inline traction through the operative extremity. We then prepped and draped the right lower extremity in normal sterile orthopedic fashion after maintained reduction was confirmed on fluoroscopy orthogonal views. We then performed a timeout with all parties in attendance in agreement with the side, site, operation be performed. 2 g Ancef was administered prior to incision by anesthesia staff. I first used fluoroscopy to mariel out our planned incision with the planned trajectory of the screws. An approximately 5 inch incision was made along the lateral thigh. I then opened the IT band with a scalpel. A threaded K wire was then used to plan my screw trajectory. I placed an inverted triangle configuration just above the level of the lesser trochanter. Position was confirmed on fluoroscopy and appropriate and parallel position. Depth gauge was used to measure the length of screws. Near cortex was drilled with a cannulated drill. Screws were then placed on power and tightened on hand. The inferior most screw head very little purchase and was backing out prior to closing the wounds. I elected to remove this screw and place a more superior screw in the inferior portion of the neck. The screw achieved excellent cancellous purchase. Final fluoroscopic images were obtained. Maintained reduction in placement and size of hardware appeared appropriate. Hemostasis was excellent. I then thoroughly irrigated the wound with normal saline solution. Deep tissues were closed with 0 Vicryl suture and subcutaneous tissue closed with 2-0 Vicryl suture. Skin was finally closed with demetrio. Sterile compression dressings were applied to the wounds. Patient was then taken out of traction entirely and removed from both traction boot and well leg acevedo. Patient was transferred back to his hospital bed in stable condition and extubated safely in the operative suite. Patient was then transferred to PACU in stable condition. Post Operative Plan: Weightbearing: Weightbearing as tolerated right lower extremity Antibiotics: Ancef 1 g x 3 doses postoperatively, 1 dose given preoperatively DVT Prophylaxis: Lovenox to start postoperative day #1 Velázquez: None Dressing: Dry sterile dressing changes daily and as needed for saturation X-Rays: 2 weeks postop in the office Follow-up: 2 weeks in the office with myself
[2022-10-03] VITALS (8 sets, daily range): BP systolic 135–153; BP diastolic 72–84; PULSE 73–78; RESP 16–20; TEMP 36.8–37.1; O2SAT 83–100; BMI 34.0
[2022-10-03] MEDS: oxyCODONE 5 MG Tablet PO ×3 (04:22→18:50)
[2022-10-03] MEDS: Cefazolin 2 GM in 0.9% Normal Saline 100 ML IV ×2 (06:09→14:31)
--- NOTE | 2022-10-03 07:35 | PCM.PN.ORT ---
Subjective Subjective Patient seen and examined. Denies any new complaints. Up with nursing this morning. Denies fevers, chills, nausea vomiting, chest pain or shortness of breath. Objective Data Objective Data Vital Signs: Vital Signs Temp Pulse Resp BP Pulse Ox O2 Del Method O2 Flow Rate 98.3 F 77 20 H 135/73 H 93 Nasal Cannula 2 10/03/22 04:03 10/03/22 04:03 10/03/22 04:03 10/03/22 04:03 10/03/22 07:00 10/03/22 07:00 10/03/22 07:00 Oxygen Flow Rate (L/min) 2 Oxygen Delivery Method Nasal Cannula Weight: 198 lb Body Mass Index (BMI) 34.0 Intake & Output: Intake and Output for Last 24 Hours 10/01/22 10/02/22 10/03/22 23:59 23:59 23:59 Intake Total 2955.83 / 2955.83 1035 / 1035 Output Total 2950 / 2950 600 / 600 Balance 5.83 / 5.83 435 / 435 Lab / Micro Data Result Diagrams: 10/02/22 06:00 10/02/22 06:00 Radiography Diagnostic Testing: Radiology Impression Hip X-Ray 10/02/22 14:55 IMPRESSION: Fluoroscopic guidance provided during an internal fixation of the right femoral neck fracture. Electronically Signed: Claude Melgar DO at 16:12 EST Reading Location ID and State: [address] [place] [address] Tel [phone], Service support , Physical Exam Narrative General - A&Ox3, NAD. VSS/AF Right lower extremity -incisional dressing C/D/I. SILT Sural, Saphenous, SPN, DPN, Tibial N. distributions. DP, PT 2+. BCR. DF, PF, EHL 5/5. No calf TTP. Assessment & Plan Assessment/Plan (1) Closed right hip fracture: PLAN: POD#1 s/p right femoral neck percutaneous screw fixation - Pain control - Medicine following for medical management - PT/OT-weightbearing as tolerated right lower extremity - DVT PPX -Lovenox 40 mg subcutaneously daily, SCDARTIE myers. Plan for Lovenox x20 days postoperatively. - Case management - D/C planning Mobilize with therapy today. Once therapy goals are met, plan for likely discharge to home with family. Follow-up 2 weeks with me in the office for staple removal and x-rays. Maintain surgical dressing x5 days, then okay to remove and leave open to air if no drainage.
[2022-10-03] MEDS: Calcium Carbonate 500 MG Tablet PO ×3 (08:04→16:43)
[2022-10-03] MEDS: Pantoprazole Sodium 20 MG Tablet PO (08:04)
[2022-10-03] MEDS: Senna/Docusate Sodium 1 Tablet 2 TABLET PO ×2 (08:05→21:22)
--- NOTE | 2022-10-03 09:28 | CASEMGMT ---
MAYNOR LUNA Assessment: Face to Face with pt for initial transition planning/care coordination assessment. RN CHERYL introduced self and role at [facility], pt voices understanding and consents to assessment. Pt is A/O x4 and answers all questions appropriately at this time. Pt sitting up in chair and just worked with therapy. Care providers, pharmacy, and demographics verified/updated. Admitting Dx: R hip fx PCP:[facility] Specialists:Pt denies. Preferred Pharmacy: [facility] Insurance: Sandra [facility] Prescription Benefit: yes LNOK: Dario Najera, Living Arrangements: Pt lives with in a single story house with 4 steps to enter with a rail. Pt reports she was I in ADL's and denies concerns at home. Transportation: Pt drives self and denies concerns with transportation. Pt reports her can transport her post surgery until she can drive again but she is typically the main wrecker driver. DME/HHC/SNF: Pt has no DME at home, has no previous HHC or SNF stays. Pt states she is unsure currently if she can return right home or not. States she has only been up one time since surgery. Pt states no further concerns/needs. CM to follow. Advised pt to ask CM if any further question/concerns/needs arise, voices understanding. Pt Goal: Pt is unsure yet Plan: TBD, will discuss with therapy.
--- NOTE | 2022-10-03 09:44 | CASEMGMT ---
Social Work? SW in to meet with pt following update from Dr. Luu and therapy team that pt will benefit from rehab. SW introduced self and role at the hospital. Pt agreeable to discussing discharge planning. SW offered a list of SNF providers including quality and resource use data and consistent with the patient?s preferred geographic region, medical needs, and insurance network from the [employer] Guide. Pt declined the list, stated preference would be [facility] Inpatient rehab unit. TE sent referral to Kathi Medrano at [facility]. Will await acceptance. PLAN: [facility], pending acceptance and insurance auth? MARCUS Vega?
--- NOTE | 2022-10-03 09:47 | CASEMGMT ---
Social Work? ? SW in to pt room to verify advance directives. Pt confirmed has AD and named?,?Dario Najera, as agent. SW made pt aware documents are not on file and if pt would like to bring these documents in the documents can be dropped off at the Medical Records department. Pt voiced understanding.?? ? MARCUS Vega?
--- NOTE | 2022-10-03 10:32 | CASEMGMT ---
Social Work Kathi reached out from Rehab, informed pt is accepted. Insurance auth is needed. SW in to inform pt of acceptance. SW explained insurance auth is needed and will be started this morning. Pt voiced understanding. Pt declined SW update family. PLAN: [facility] Rehab MARCUS Vega
--- NOTE | 2022-10-03 17:49 | PN.HOSP_ITS ---
Subjective Subjective Patient was seen and examined today, she states she did not do well with physical therapy today, she is consented to go to a long-term facility or rehab unit but unfortunately we will need precertification from her insurance carrier which probably will not occur until early next week. Patient has no complaints of any shortness of breath, fever, or chills Objective Data Objective Data Vital Signs: Vital Signs Temp Pulse Resp BP Pulse Ox O2 Del Method O2 Flow Rate 98.3 F 75 18 142/78 H 97 Nasal Cannula 2 10/03/22 15:01 10/03/22 15:01 10/03/22 15:01 10/03/22 15:01 10/03/22 15:01 10/03/22 15:01 10/03/22 15:01 Oxygen Flow Rate (L/min) 2 Oxygen Delivery Method Nasal Cannula Weight: 89.811 kg Body Mass Index (BMI) 34.0 Intake & Output: Intake and Output for Last 24 Hours 10/01/22 10/02/22 10/03/22 23:59 23:59 23:59 Intake Total 2955.83 / 2955.83 1255 / 1255 Output Total 2950 / 2950 600 / 600 Balance 5.83 / 5.83 655 / 655 Lab / Micro Data Result Diagrams: 10/02/22 06:00 10/02/22 06:00 Physical Exam Const alert, oriented x3, no apparent distress and healthy appearing General Appearance: cooperative, well kempt and well developed Orientation / Consciousness: awake, oriented to person, oriented to place and oriented to time HEENT normocephalic, head/scalp atraumatic and moist oral mucous membranes Eyes PERRL, EOMs intact bilaterally and conjunctivae normal Neck supple, no JVD, thyroid normal and no carotid bruits General: trachea midline Resp normal respiratory effort, no retractions, no use of accessory muscles and clear to auscultation bilaterally Auscultation: Negative for rales, rhonchi or wheezes Cardio regular rate, regular rhythm, S1 normal heart sound, S2 normal heart sound, no murmurs, no rub and no gallops GI normal to inspection, nondistended, normoactive bowel sounds, soft to palpation, non-tender and non-distended Extremity no clubbing, cyanosis or edema Neuro oriented x3, CN's II-XII intact bilaterally, moves all extremities, no focal motor deficits and no sensory deficits noted Sensorium / Orientation: awake, alert, oriented to person, oriented to place and oriented to time Speech: speech normal Psych affect normal Assessment & Plan Assessment/Plan (1) Closed right hip fracture: PLAN: Plan 1. Right femoral neck fracture secondary to osteoporosis-postop day #1 percutaneous screw fixation, continue PT and OT, patient will need placement in a long-term facility versus rehab center. #2 essential hypertension-patient will remain on her present medications #3 GERD-patient is on a PPI currently Charges/Coding Visit Charges Inpatient E&M: 50231 Subs Hosp L2
[2022-10-04 02:46] VITALS: BP 133/71; PULSE 80; RESP 18; TEMP 37.2; O2SAT 99
[2022-10-04] MEDS: Acetaminophen 325 MG Tablet 650 MG PO ×2 (03:42→13:03)
[2022-10-04 08:14] VITALS: BP 135/82; PULSE 70; RESP 16; TEMP 36.6; O2SAT 98
[2022-10-04] MEDS: Pantoprazole Sodium 20 MG Tablet PO (08:18)
[2022-10-04] MEDS: Calcium Carbonate 500 MG Tablet PO ×3 (08:18→17:00)
[2022-10-04] MEDS: Senna/Docusate Sodium 1 Tablet 2 TABLET PO ×2 (08:18→20:09)
[2022-10-04] MEDS: Lisinopril 10 MG Tablet PO (08:19)
--- NOTE | 2022-10-04 09:47 | CM.ED ---
Addendum entered by Jo Hastings 10/04/22 14:06: Kathi Medrano called and stated that she is still waiting to hear on status of patient's approval for insurance. If not approval is obtained patient will need to stay as her insurance changes on 10/05/22. Kathi needs patient's new [employer] card. Jo CERON Original Note: Per MD patient's insurance will change on 10/05/2022 to [employer]. Thus, patient will need precertification. TE sent email to Kathi Medrano advising of patient's insurance changing on 10/05/2022. Jo CERON
--- NOTE | 2022-10-04 13:21 | PCM.PN.ORT ---
Subjective Subjective Patient seen and examined. Pain improving. Patient ambulating with a walker. Denies fevers, chills, nausea vomiting, chest pain or shortness of breath. Objective Data Objective Data Vital Signs: Vital Signs Temp Pulse Resp BP Pulse Ox O2 Del Method O2 Flow Rate 97.8 F 70 16 135/82 H 98 Room Air 2 10/04/22 08:14 10/04/22 08:14 10/04/22 08:14 10/04/22 08:14 10/04/22 08:14 10/04/22 08:14 10/04/22 02:46 Oxygen Flow Rate (L/min) 2 Oxygen Delivery Method Room Air Weight: 198 lb Body Mass Index (BMI) 34.0 Intake & Output: Intake and Output for Last 24 Hours 10/02/22 10/03/22 10/04/22 23:59 23:59 23:59 Intake Total 2955.83 / 2955.83 1791.75 / 1791.75 750 / 750 Output Total 2950 / 2950 1500 / 1500 450 / 450 Balance 5.83 / 5.83 291.75 / 291.75 300 / 300 Lab / Micro Data Result Diagrams: 10/02/22 06:00 10/02/22 06:00 Physical Exam Narrative General - A&Ox3, NAD. VSS/AF Right lower extremity -incisional dressing C/D/I. SILT Sural, Saphenous, SPN, DPN, Tibial N. distributions. DP, PT 2+. BCR. DF, PF, EHL 5/5. No calf TTP. Assessment & Plan Assessment/Plan (1) Closed right hip fracture: PLAN: POD#2 s/p right femoral neck percutaneous screw fixation - Pain control - Medicine following for medical management - PT/OT-weightbearing as tolerated right lower extremity - DVT PPX -Lovenox 40 mg subcutaneously daily, SCDs, ARTIE hose. Plan for Lovenox x28 days postoperatively. - Case management - D/C planning Pre-CERT pending for inpatient rehab. Stable for discharge from my standpoint once precertification obtained. Follow-up 2 weeks with me in the office for staple removal and x-rays. Maintain surgical dressing x5 days, then okay to remove and leave open to air if no drainage. Okay to shower if no wound drainage.
[2022-10-04 13:51] VITALS: O2SAT 95
[2022-10-04 14:00] VITALS: BP 133/77; PULSE 77; RESP 18; TEMP 36.7; O2SAT 96
--- NOTE | 2022-10-04 15:12 | PN.HOSP_ITS ---
Subjective Subjective Patient was seen and examined today, she does not complain of any fever, chills, or shortness of breath. Patient states that she will have a different insurance carrier starting October 05, we will need to do a prior authorization with her new carrier early next week for placement in a rehab facility versus ECF Objective Data Objective Data Vital Signs: Vital Signs Temp Pulse Resp BP Pulse Ox O2 Del Method O2 Flow Rate 98.0 F 77 18 133/77 H 96 Room Air 2 10/04/22 14:00 10/04/22 14:00 10/04/22 14:00 10/04/22 14:00 10/04/22 14:00 10/04/22 14:00 10/04/22 02:46 Oxygen Flow Rate (L/min) 2 Oxygen Delivery Method Room Air Weight: 89.811 kg Body Mass Index (BMI) 34.0 Intake & Output: Intake and Output for Last 24 Hours 10/02/22 10/03/22 10/04/22 23:59 23:59 23:59 Intake Total 2955.83 / 2955.83 1791.75 / 1791.75 750 / 750 Output Total 2950 / 2950 1500 / 1500 450 / 450 Balance 5.83 / 5.83 291.75 / 291.75 300 / 300 Lab / Micro Data Result Diagrams: 10/02/22 06:00 10/02/22 06:00 Physical Exam Narrative alert, oriented x3, no apparent distress and healthy appearing General Appearance: cooperative, well kempt and well developed Orientation / Consciousness: awake, oriented to person, oriented to place and oriented to time HEENT normocephalic, head/scalp atraumatic and moist oral mucous membranes Eyes PERRL, EOMs intact bilaterally and conjunctivae normal Neck supple, no JVD, thyroid normal and no carotid bruits General: trachea midline Resp normal respiratory effort, no retractions, no use of accessory muscles and clear to auscultation bilaterally Auscultation: Negative for rales, rhonchi or wheezes Cardio regular rate, regular rhythm, S1 normal heart sound, S2 normal heart sound, no murmurs, no rub and no gallops GI normal to inspection, nondistended, normoactive bowel sounds, soft to palpation, non-tender and non-distended Extremity no clubbing, cyanosis or edema Neuro oriented x3, CN's II-XII intact bilaterally, moves all extremities, no focal motor deficits and no sensory deficits noted Sensorium / Orientation: awake, alert, oriented to person, oriented to place and oriented to time Speech: speech normal Psych affect normal Assessment & Plan Assessment/Plan (1) Closed right hip fracture: PLAN: Plan 1. Right femoral neck fracture secondary to osteoporosis-postop day #2 percutaneous screw fixation, continue PT and OT, patient will need placement in a [place] [facility] facility versus rehab center. This will not happen till early next week in all likelihood. #2 essential hypertension-patient will remain on her present medications #3 GERD-patient is on a PPI currently Charges/Coding Visit Charges Inpatient E&M: 02681 Subs Hosp L2
[2022-10-04 20:00] VITALS: BP 143/82; PULSE 82; RESP 18; TEMP 37.2; O2SAT 94
[2022-10-05] VITALS: BP 143/82; PULSE 82; RESP 18; TEMP 37.2; O2SAT 94
[2022-10-05 02:00] VITALS: BP 142/74; PULSE 81; RESP 18; TEMP 37.1; O2SAT 97
[2022-10-05 08:49] VITALS: O2SAT 95
[2022-10-05 08:50] VITALS: BP 163/77; PULSE 88; RESP 18; TEMP 36.6; O2SAT 97
[2022-10-05] MEDS: Lisinopril 10 MG Tablet PO (08:52)
[2022-10-05] MEDS: Calcium Carbonate 500 MG Tablet PO ×3 (08:52→16:47)
[2022-10-05] MEDS: Cholecalciferol (Vit D3) 125 MCG CAPSULE (5,000 UNITS) PO (08:53)
[2022-10-05] MEDS: Pantoprazole Sodium 20 MG Tablet PO (08:54)
[2022-10-05] MEDS: oxyCODONE 5 MG Tablet PO (08:57)
[2022-10-05 15:26] VITALS: BP 157/96; PULSE 84; RESP 18; TEMP 37.2; O2SAT 98
--- NOTE | 2022-10-05 15:50 | PCM.PN.HOSP ---
Subjective Subjective Patient was seen and examined today, she has no complaints of any fevers or chills, she does not have any complaints of postop pain at this time. Objective Data Objective Data Vital Signs: Vital Signs Temp Pulse Resp BP Pulse Ox O2 Del Method O2 Flow Rate 99.0 F 84 18 157/96 H 98 Room Air 2 10/05/22 15:26 10/05/22 15:26 10/05/22 15:26 10/05/22 15:26 10/05/22 15:26 10/05/22 15:26 10/05/22 00:00 Oxygen Flow Rate (L/min) 2 Oxygen Delivery Method Room Air Weight: 89.811 kg Body Mass Index (BMI) 34.0 Intake & Output: Intake and Output for Last 24 Hours 10/03/22 10/04/22 10/05/22 23:59 23:59 23:59 Intake Total 1791.75 / 1791.75 750 / 1150 1630 / 1630 Output Total 1500 / 1500 450 / 450 Balance 291.75 / 291.75 300 / 700 1630 / 1630 Lab / Micro Data Result Diagrams: 10/02/22 06:00 10/02/22 06:00 Physical Exam Narrative alert, oriented x3, no apparent distress and healthy appearing General Appearance: cooperative, well kempt and well developed Orientation / Consciousness: awake, oriented to person, oriented to place and oriented to time HEENT normocephalic, head/scalp atraumatic and moist oral mucous membranes Eyes PERRL, EOMs intact bilaterally and conjunctivae normal Neck supple, no JVD, thyroid normal and no carotid bruits General: trachea midline Resp normal respiratory effort, no retractions, no use of accessory muscles and clear to auscultation bilaterally Auscultation: Negative for rales, rhonchi or wheezes Cardio regular rate, regular rhythm, S1 normal heart sound, S2 normal heart sound, no murmurs, no rub and no gallops GI normal to inspection, nondistended, normoactive bowel sounds, soft to palpation, non-tender and non-distended Extremity no clubbing, cyanosis or edema Neuro oriented x3, CN's II-XII intact bilaterally, moves all extremities, no focal motor deficits and no sensory deficits noted Sensorium / Orientation: awake, alert, oriented to person, oriented to place and oriented to time Speech: speech normal Psych affect normal Assessment & Plan Assessment/Plan (1) Closed right hip fracture: PLAN: Plan 1. Right femoral neck fracture secondary to osteoporosis-postop day #3 percutaneous screw fixation, continue PT and OT, patient will need placement in a intermediate facility versus rehab center. This will not happen till early next week in all likelihood. #2 essential hypertension-patient will remain on her present medications #3 GERD-patient is on a PPI currently Charges/Coding Visit Charges Inpatient E&M: 55740 Subs Hosp L2
[2022-10-05 20:27] VITALS: BP 145/79; PULSE 81; RESP 18; TEMP 36.4; O2SAT 94
[2022-10-05] MEDS: Acetaminophen 325 MG Tablet 650 MG PO (20:30)
[2022-10-06 03:21] VITALS: BP 126/69; PULSE 62; RESP 18; TEMP 36.3; O2SAT 98
[2022-10-06] MEDS: Calcium Carbonate 500 MG Tablet PO ×2 (08:21→12:23)
[2022-10-06] MEDS: Lisinopril 10 MG Tablet PO (08:24)
[2022-10-06] MEDS: Pantoprazole Sodium 20 MG Tablet PO (08:25)
[2022-10-06] MEDS: Cholecalciferol (Vit D3) 125 MCG CAPSULE (5,000 UNITS) PO (08:25)
[2022-10-06 09:20] VITALS: BP 180/75; PULSE 87; RESP 18; TEMP 37.1; O2SAT 97
[2022-10-06] MEDS: oxyCODONE 5 MG Tablet PO ×2 (12:22→16:18)
[2022-10-06 15:25] VITALS: BP 152/88; PULSE 80; RESP 18; TEMP 37.2; O2SAT 97
--- NOTE | 2022-10-06 16:27 | DCINST_ITS ---
Discharge Instructions Diet Discharge Diet: No restrictions Activity Discharge Activity: - (Weightbearing as tolerated right lower extremity) Weight Bearing Status: Weight bearing as tolerated Dressing / Incision Call your doctor if your incision/area has: Increased Pain/ Swelling, Increased Redness and Foul Smelling Discharge Call your doctor if you observe: Fever of 101 or Higher Remove Dressing in: 3 days Cleanse incision/area with: Soap & Water (daily after dressing removed, may shower with waterproof dressing until dressing removed) Follow Up Care Test Results: Test results from this visit will be discussed in further detail at your follow- up appointment, if applicable. Discharge Plan Admission Admit Date/Time: 10/01/22 20:10 Primary Reason for Your Visit: Closed right hip fracture Attending Provider: Carlos Luu Primary Care Provider: Tam Herrmann Consulting Providers: Joe Mazariegos ; Margaret Mccrary Instructions Additional Instructions / Restrictions: [facility] will contact you to arrange for physical therapy Discharge Orders/Prescriptions Prescriptions: New lisinopril 10 mg Tablet 20 mg PO DAILY Qty: 60 0RF calcium carbonate 200 mg calcium (500 mg) Tablet,Chewable 500 mg PO TIDCM Qty: 0 0RF oxycodone 5 mg Tablet 5 - 10 mg PO Q4H PRN PRN (Reason: Pain Score 4-10) 5 Days Qty: 20 0RF Eliquis 2.5 mg tablet 2.5 mg PO BID Qty: 60 0RF Continued omeprazole 20 mg Capsule,Delayed Release(Dr/Ec) 20 mg PO DAILY PRN (Reason: GERD) cyanocobalamin (vitamin B-12) 1,000 mcg Tablet, Sublingual 1,000 mcg SUBLINGUAL DAILY cholecalciferol (vitamin D3) [Vitamin D3] 25 mcg (1,000 unit) Tablet 25 mcg PO DAILY Discontinued lisinopril 10 mg Tablet 10 mg PO DAILY Referrals / Follow Up: Joe Mazariegos DO [Med Staff - Active Staff] - See Referral Note (In 2 weeks, call for appointment) Tam Herrmann MD [Primary Care Provider] - Within 1 Month Disposition Disposition (needs filled in before D/C Order can be placed): Home, Self Care
--- NOTE | 2022-10-06 16:49 | DS.PCM_ITS ---
Providers Date of Admission: 10/01/22 Date of Discharge: 10/06/22 Primary Care Physician: Dr. Tam Herrmann MD Consultations 10/01/22 21:33 Consult: Orthopedics Routine Consulting Provider: Joe Mazariegos Reason for Consult: Fall, R hip fracture EMERGENT Consult: No MD Notified: Yes Date Notified: 10/01/22 Time Notified: 20:13 Method of Notification: ED Physician Initiated Reason For Visit: R HIP FRACTURE Diagnosis Discharge Diagnosis (1) Closed right hip fracture: Status: Acute Code(s): S72.001A - Fracture of unspecified part of neck of right femur, initial encounter for closed fracture Plan 1. Right femoral neck fracture secondary to osteoporosis-postop day #3 percutaneous screw fixation, continue PT and OT, patient will need placement in a long-term facility versus rehab center. This will not happen till early next week in all likelihood. #2 essential hypertension-patient will remain on her present medications #3 GERD-patient is on a PPI currently Medications at Discharge Home Medications cholecalciferol (vitamin D3) 25 mcg (1,000 unit) tablet (Vitamin D3) 25 mcg PO DAILY supplement 10/01/22 cyanocobalamin (vitamin B-12) 1,000 mcg sublingual tablet 1,000 mcg sublingual DAILY supplement 10/01/22 omeprazole 20 mg capsule,delayed release 20 mg PO DAILY PRN GERD 10/01/22 apixaban 2.5 mg tablet (Eliquis) 2.5 mg PO BID #60 tabs 10/06/22 calcium carbonate 200 mg calcium (500 mg) chewable tablet 500 mg PO TIDCM #0 tabs 10/06/22 lisinopril 10 mg tablet 20 mg PO DAILY #60 tabs 10/06/22 oxycodone 5 mg tablet 5 - 10 mg PO Q4H PRN PRN Pain Score 4-10 5 days #20 tabs 10/06/22 Hospital Course Operations - (Percutaneous screw fixation of right femoral neck fracture 10/02/2022) Procedures None Summary of Care Provided Minutes Spent on Discharge: 31 Hospital Course: This 67-year-old white female was seen in the emergency room at [facility] after sustaining a fall at home and complaining of right hip pain and inability to ambulate. X-rays showed a right femoral neck fracture, she was admitted to MedSurg 3 and seen in consultation by orthopedic surgery, she underwent percutaneous screw fixation of her right femoral neck fracture, there were no untoward events after her surgery, she progressed well with PT and OT, initially was thought she might need to go to an extended care facility for rehab services but ultimately was able to go home. On 10/07/2022, patient was seen and examined: On examination she appeared in good health and spirits, she does not appear to be in any distress. Vital signs as documented. Skin warm and dry and without overt rashes. Neck without JVD, thyroid appears normal, trachea is midline, neck is supple. Lungs clear, normal air movement was noted. Heart exam notable for regular rhythm, normal sounds and absence of murmurs, rubs or gallops. Abdomen unremarkable and without evidence of organomegaly, masses, or abdominal aortic enlargement, bowel sounds are present in all 4 quadrants, no abdominal tenderness was noted. Extremities no nedematous, no cyanosis was noted, no clubbing was noted. Neuro: Cranial nerves II through XII are grossly intact, no focal motor deficits were noted, sensation to light touch and pinprick is intact, motor exam 5/5 throughout. Psych: Patient is alert and oriented x3, she does not appear anxious or depressed, she does not appear agitated. Patient was discharged in stable condition home on 10/07/2022. Weight / BMI Weight Weight: 89.811 kg Body Mass Index (BMI) 34.0 ABG / Lab / Microbiology Data Result Diagrams: 10/02/22 06:00 10/02/22 06:00 D/C Instructions Discharge Diet: No restrictions Weight Bearing Status: Weight bearing as tolerated Call your doctor if your incision/area has: Increased Pain/ Swelling, Increased Redness and Foul Smelling Discharge Call your doctor if you observe: Fever of 101 or Higher Cleanse incision/area with: Soap & Water (daily after dressing removed, may shower with waterproof dressing until dressing removed) Meaningful Use Info Meaningful Use Diagnoses (Choose all that apply): None applicable Discharge Plan Admission Admit Date/Time: 10/01/22 20:10 Primary Reason for Your Visit: Closed right hip fracture Attending Provider: Carlos Luu Primary Care Provider: Tam Herrmann Consulting Providers: Joe Mazariegos ; Margaret Mccrary Instructions Additional Instructions / Restrictions: [facility] will contact you to arrange for physical therapy Discharge Orders/Prescriptions Prescriptions: New lisinopril 10 mg Tablet 20 mg PO DAILY Qty: 60 0RF calcium carbonate 200 mg calcium (500 mg) Tablet,Chewable 500 mg PO TIDCM Qty: 0 0RF oxycodone 5 mg Tablet 5 - 10 mg PO Q4H PRN PRN (Reason: Pain Score 4-10) 5 Days Qty: 20 0RF Eliquis 2.5 mg tablet 2.5 mg PO BID Qty: 60 0RF Continued omeprazole 20 mg Capsule,Delayed Release(Dr/Ec) 20 mg PO DAILY PRN (Reason: GERD) cyanocobalamin (vitamin B-12) 1,000 mcg Tablet, Sublingual 1,000 mcg SUBLINGUAL DAILY cholecalciferol (vitamin D3) [Vitamin D3] 25 mcg (1,000 unit) Tablet 25 mcg PO DAILY Discontinued lisinopril 10 mg Tablet 10 mg PO DAILY Referrals / Follow Up: Joe Mazariegos DO [Med Staff - Active Staff] - See Referral Note (In 2 weeks, call for appointment) Tam Herrmann MD [Primary Care Provider] - Within 1 Month Disposition Disposition (needs filled in before D/C Order can be placed): Home, Self Care Charges/Coding Visit Charges Inpatient E&M: 30627 Disch Hosp >30min
[2022-10-06 16:56] VITALS: BP 152/80; PULSE 80; RESP 18; TEMP 37.2; O2SAT 96
== END 2022-10-06 16:55 | disposition home or self-care (01) | DRG 482 ==
LOC: ED 19:48 → MS3 20:30
PROVIDERS: Student in an Organized Health Care Education/Training Program; Admitting Provider Family Medicine; Emergency Provider Student in an Organized Health Care Education/Training Program; PCP Family Medicine; Visit Provider Internal Medicine
PROC: 0QH634Z Insertion of Internal Fixation Device into Right Upper Femur, Percutaneous Approach (ICD-10-PCS; principal; 2022-10-02 15:00)
DX: M80.051A Age-related osteoporosis with current pathological fracture, right femur, initial encounter for fracture (principal); Z68.38 Body mass index [BMI] 38.0-38.9, adult; E66.9 Obesity, unspecified; I10 Essential (primary) hypertension; K21.9 Gastro-esophageal reflux disease without esophagitis; W01.0XXA Fall on same level from slipping, tripping and stumbling without subsequent striking against object, initial encounter; Z79.899 Other long term (current) drug therapy
CPT/HCPCS: 51702; 71045; 72170; 73502; 73552; 73700; 76000; 80048; 80053; 85025; 86850; 86900; 86901; 93005; 97110; 97116; 97162; 97165; 97530; 97535; 99251; 99285; C1776; J7030; J7120; A4216; G0463; J2405

== ENCOUNTER → 2023-07-02 | Outpatient (CLI) | payer MEDICARE, SELFPAY ==
--- NOTE | 2023-07-02 12:58 | CT_ITS ---
CT RIGHT LOWER EXTREMITY CLINICAL INDICATION: HIP FX TECHNIQUE: Axial CT images of the RIGHT lower extremity was performed without IV contrast material. Coronal and sagittal reformats were provided. RADIATION DOSAGE (If Supplied By Facility): CTDIvol = ( 13.17 ) mGy, DLP = ( 716.52 ) mGycm COMPARISON: Prior study dated: 10/01/2022 FINDINGS: There are [address] transfixing the right femoral neck. These remain in good position with no periprosthetic lucency. There is some irregularity along the inferior aspect of the femoral neck with subtle lucency and cortical step-off. Sclerosis along the pubic symphysis. The sacroiliac joints are symmetric. Both hips are well aligned. The joint spaces are maintained. The sacrum is intact. The visualized intrapelvic structures show no acute abnormality. Normal appendix. No lymphadenopathy. No abdominal wall hernia. CT/Extremity Lower without Contra IMPRESSION: [address] at the right femoral neck transfixing the previous site of fracture. There is some lucency and cortical step-off noted at the inferior aspect of the femoral neck at the site of previous fracture, likely residual remodeling. Osteitis pubis. Electronically Signed: Reji Montalvo MD at 22:02 EDT ,
== END | disposition home or self-care (01) ==
PROVIDERS: PCP Internal Medicine; Referring Provider Specialist; Visit Provider Specialist
DX: S72.001D Fracture of unspecified part of neck of right femur, subsequent encounter for closed fracture with routine healing (principal); X58.XXXD Exposure to other specified factors, subsequent encounter
CPT/HCPCS: 73700